=== PATIENT | male | born 1975 | race Caucasian/White ===

== ENCOUNTER 2017-03-12 16:02 | Emergency (ER) | payer OTHER ==
[~2017-03-12] VITALS: Ht 177.8 cm; Wt 92.5 kg
[2017-03-12 16:05] VITALS: Ht 177.8 cm; Wt 92.5 kg
[2017-03-12] MEDS ORDERED: NO ROUTINE MEDS (16:25)
--- NOTE | 2017-03-12 16:31 | NUR ---
LAB AT BEDSIDE FOR BLOOD DRAW.
[2017-03-12 16:43] LABS: BASOPHILS % (AUTO) 0.2 % (0-2); EOSINOPHILS # (AUTO) 0.1 T/MM3 (0-0.5); EOSINOPHILS % (AUTO) 1.5 % (0-4); HCT - HEMATOCRIT 47.4 % (41-53); HGB - HEMOGLOBIN 16.2 GM/DL (13.5-17.5); LYMPHOCYTES # (AUTO) 1.8 T/MM3 (1-4.8); LYMPHOCYTES % (AUTO) 20.7 % (23-45); MEAN CORPUSCULAR HGB 28.6 UUG (26-34); MEAN CORPUSCULAR HGB CONC(MCHC 34.2 GM/DL (31-37); MEAN CORPUSCULAR VOLUME 83.6 UM3 (80-100); MEAN PLATELET VOLUME 9.6 UM3 (9.4-12.4); MONOCYTES # (AUTO) 0.6 T/MM3 (0-0.8); MONOCYTES % (AUTO) 6.5 % (0-9.0); NEUTROPHILS #(AUTO)-ABSOLUTE 6.1 T/MM3 (1.8-7.7); NEUTROPHILS % (AUTO) 71.1 % (33-66); RED BLOOD COUNT 5.67 M/MM3 (4.50-5.90); WBC - WHITE BLOOD COUNT 8.6 T/MM3 (4.5-11.0)
[2017-03-12 16:50] LABS: ALBUMIN 4.5 G/DL (3.5-5.0); ALBUMIN/GLOBULIN RATIO 1.5 RATIO (1.1-2.2); ALKALINE PHOSPHATASE 68 U/L (38-126); ALT (SGPT) 47 U/L (21-72); ANION GAP 13 MEQ/L (5-15); AST (SGOT) 26 U/L (17-59); BUN/CREATININE RATIO 13 RATIO (6-26); CALCIUM 9.9 MG/DL (8.4-10.2); CHLORIDE 105 MEQ/L (98-107); CO2 - CARBON DIOXIDE 29 MEQ/L (22-30); CREATININE 1.2 MG/DL (0.8-1.5); GLOMERULAR FILTRATION RATE 66; GLUCOSE 99 MG/DL (75-110); POTASSIUM 4.8 MEQ/L (3.6-5); SODIUM 147 MEQ/L (134-144); TOTAL PROTEIN 7.6 G/DL (6.3-8.2)
--- NOTE | 2017-03-12 17:10 | NUR ---
PROVIDER DR. DILLARD AT BEDSIDE TO SPEAK WITH PT.
--- NOTE | 2017-03-12 17:20 | ERPDOC ---
Departure Disposition Decision Date: Mar 12, 2017 Disposition Decision Time: 17:44 Disposition: 01 DISCHARGED HOME, SELF-CARE Impression Impression Impression: Primary Impression: Atypical chest pain Severity: Mild Condition: Improved Seen By: Physician only Referrals: YUMIKO GARCIA DO (Family) CAPRI TORRES MD 1 Day Patient Instructions: Chest Pain (ED) Problems/Meds/Labs Reviewed?: Yes Medications reviewed and manag: Yes Follow up care ordered?: Yes Mental Status: Alert, Oriented HPI - General Medical General Chief Complaint: Chest Pain Stated Complaint: CHEST PAIN Time Seen by Provider: 16:12 Source: patient, family Exam Limitations: no limitations HPI - General Medical Initial Comments 41-year-old male presents to the emergency department with a chief complaint of chest pain. Patient states that he has felt mild tightness in his left chest for 2 weeks constantly. Patient describes his discomfort as 1/10. No radiation. He does not note anything that makes any better or any worse. Patient denies any other complaints or associated symptoms. Patient denies any personal history of coronary artery disease or familial history. Patient was at home when his symptoms began. Symptoms have been persistent in nature since onset without relenting for 2 weeks. Occurred At: home Onset: Constant Allergies: Coded Allergies: No Known Allergies (Unverified , 03/12/17) Past History Past Medical History Pt denies signifigant PMH Musculoskeletal: back pain, neck pain Surgical History Denies Surgeries General: back Family History Family History: Negative Social History Smoking Status: Never smoker Substance Use Type: does not use Alcohol Intake: none Review of Systems Constitutional Constitutional: DENIES: chills, fever Eyes General: DENIES: erythema, exudate Lids/Accessories: DENIES: erythema, swelling Vision: DENIES: acuity, blurring ENMT Ears: DENIES: drainage, erythema Hearing: DENIES: hearing loss Balance: DENIES: ataxia, falling to one side Sinuses: DENIES: congestion, pain Nose: DENIES: nosebleeds, pain Mouth/Throat: DENIES: painful swallowing, sore throat Teeth: DENIES: pain Jaw: DENIES: pain Cardiovascular Cardiac: chest pain, DENIES: dyspnea on exertion Rhythm/Rate: DENIES: irregular beat, palpitations Vascular: DENIES: pedal edema, unilateral swelling Pulmonary Respiratory: DENIES: cough, dyspnea, pleuritic chest pain, sputum GI Upper Abdomen: DENIES: nausea, pain, vomiting Lower Abdomen: DENIES: diarrhea, pain General: DENIES: dysuria, frequency Musculoskeletal General: DENIES: joint pain, tenderness Integumentary Skin: DENIES: itching, rash Neurological General: DENIES: headache, numbness, weakness Psychiatric Psychiatric: DENIES: emotional instability, suicidal ideation/attempt Endocrine Endocrine: DENIES: polydipsia, polyphagia Hematologic/Lymphatic Hematologic/Lymphatic: DENIES: frequent nosebleeds, lymphadenopathy Allergic/Immunological Allergic/Immunoligical: DENIES: allergic reactions, hives Physical Exam General General Nourishment: well nourished, well developed, appears stated age, no acute distress, adult General Body Habitus: well groomed Vitals and Pain First Documented Vital Signs Date Time Temp Pulse Resp B/P Pulse Ox O2 Delivery O2 Flow Rate FiO2 03/12/17 16:05 97.6 54 16 143/85 98 Room Air Weight: Kilograms: 92.500 Height (feet): 5 Height (inches): 10.00 Triage Pain Scale: RN VS reviewed by Provider: Yes Normal Exams: Head: Normocephalic w/o trauma Eyes: Pupils are PERRLA w/ EOMI, No scleral icterus, irritation, or foreign bodies noted ENMT: No facial trauma, nasal exudates, pharyngeal erythema, or exudates are noted Dental: No fractured, loose, or missing teeth noted Neck: Full range of motion, without adenopathy, JVD, bruits or thyromegaly Chest/Resp: Clear all mancilla, with good airflow, and symmetry bilaterally CV: Regular rate and rhythm, without murmur or gallop, Pulses 2+ all extremities, capillary refill, <2 seconds all ext., no pedal edema noted Abdomen: Bowel sounds positive, soft, non-tender, non-distended, no hepatosplenomegaly, masses or bruits noted Lymphatic: No lymphadenopathy, or lymphedema noted Musculoskeletal: No tenderness, or deformity noted, good range of motion, all extremities Integumentary: No rashes, hives, or bruising noted, hair and nails, without abnormality Neurologic: Patient is alert, and oriented, cranial nerves, motor/sensory/ cerebellar, exams w/o gross deficits, to observation Psychiatric: Patient exhibits, appropriate attention, emotion and affect Differential Diagnoses Considering: Acute MA, Pneumonia, Pulmonary Embolus, Other (anxiety) Progress Results/Orders Orders Procedure Category Date Status Time Cbc W/Auto LAB 03/12/17 Complete Diff-Reflex Manual Cmp - Comprehensive LAB 03/12/17 Complete Metabolic Troponin I W LAB 03/12/17 Complete Hemolysis Index EKG EKG 03/12/17 Logged EKG EKG 03/12/17 Logged Iv Lock (Ed Only) EDM 03/12/17 Transmitted 17:12 D-Dimer LAB 03/12/17 Complete 17:12 Chest 1 View RAD 03/12/17 Taken 17:12 Lab Results Laboratory Tests Test 03/12/17 16:33 White Blood Count 8.6T/MM3 Red Blood Count 5.67M/MM3 Hemoglobin 16.2GM/DL Hematocrit 47.4% Mean Corpuscular Volume 83.6UM3 Mean Corpuscular Hemoglobin 28.6UUG Mean Corpuscular Hemoglobin Concent 34.2GM/DL RDW Standard Deviation 36.5FL Platelet Count 223T/MM3 Mean Platelet Volume 9.6UM3 Immature Granulocyte % (Auto) 0.0% Neutrophils (%) (Auto) 71.1% Lymphocytes (%) (Auto) 20.7% Monocytes (%) (Auto) 6.5% Eosinophils (%) (Auto) 1.5% Basophils (%) (Auto) 0.2% Absolute Immature Granulocyte (auto 0.00T/MM3 Absolute Neutrophils (auto) 6.1T/MM3 Absolute Lymphocytes (auto) 1.8T/MM3 Absolute Monocytes (auto) 0.6T/MM3 Absolute Eosinophils (auto) 0.1T/MM3 Absolute Basophils (auto) 0.0T/MM3 D-Dimer < 150NG/ML Turbidity < 20 Sodium Level 147MEQ/L Potassium Level 4.8MEQ/L Chloride Level 105MEQ/L Carbon Dioxide Level 29MEQ/L Anion Gap 13MEQ/L Blood Urea Nitrogen 16.0MG/DL Creatinine 1.2MG/DL Glomerular Filtration Rate Calc 66 BUN/Creatinine Ratio 13RATIO Glucose Level 99MG/DL Calculated Osmolality 283MOSM/KG Calcium Level 9.9MG/DL Total Bilirubin 0.80MG/DL Icterus Index < 2 Aspartate Amino Transf (AST/SGOT) 26U/L Alanine Aminotransferase (ALT/SGPT) 47U/L Alkaline Phosphatase 68U/L Troponin I < 0.012ng/ml Total Protein 7.6G/DL Albumin 4.5G/DL Globulin 3.1G/DL Albumin/Globulin Ratio 1.5RATIO Chemistry Specimen Hemolysis < 15 Progress Progress Labs / imaging were discussed in detail with the patient and family and questions are answered. Patient refuses offered analgesic pain medication in the emergency department. Patient has had chest pain for 2 weeks consistently without resolution. If this were a cardiac process we should expect to see an abnormal EKG or elevated troponin which we do not. Patient has an unremarkable chest x-ray. Patient has a negative d-dimer. Patient is offered admission to the hospital which he declines. After declining admission to the hospital, the patient is discussed with Dr. Bliss of cardiology who recommends outpatient follow -up with Dr. Torres tomorrow in the office. Patient is instructed to use Motrin 600 mg by mouth 3 times a day until directed otherwise by Cardiology. Patient verbalizes agreement and understanding. Patient is discharged home in accordance with his wishes. He is to follow up as instructed. Patient is to return to the emergency department if his condition worsens or changes in any manner. Patient is in agreement with the current plan of management. Patient has no history personally or familial of coronary artery disease. Patient has no known risk factors for coronary artery disease. Ekg x [address] Bliss who agrees that the EKGS are similar and do not meet STEMI Criteria. EKG EKG : Rate: <60 Rhythm: sinus Reading: normal QRS: normal Intervals: normal ST/T: other (early repolarization. No STEMI reviewed with Dr. Bliss of Cardiology.) Interpreted by: signing physician EKG Comments EKG #2 - sinus bradycardia. 49 bpm. No STEMI. Reviewed with Cardiology. Xray Xray : Xray: CXR Portable Interpretation: Normal, Interpreted by STEPHANIE Harris DO Mar 12, 2017 17:20
--- NOTE | 2017-03-12 17:24 | NUR ---
XRAY PORTABLE XRAY AT BEDSIDE.
--- NOTE | 2017-03-12 17:40 | NUR ---
STATUS PT RESTING COMFORTABLY IN CART. REPORTS NO CHANGE IN CHEST PAIN, CURRENTLY 11/29. DENIES NEEDS AT THIS TIME. CALL LIGHT WITHIN REACH, SPOUSE REMAINS AT BEDSIDE. VSS, WILL CONTINUE TO MONITOR.
[2017-03-12 17:57] VITALS: BP 132/84; PULSE 54; RESP 16; TEMP 97.6; O2SAT 96
--- NOTE | 2017-03-12 17:57 | NUR ---
DISCHARGE WRITTEN INSTRUCTIONS REVIEWED WITH PT, INSTRUCTED TO RETURN TO ER WITH WORSENING SYMPTOMS OTHERWISE F/U WITH DR. TORRES AND ESTABLISHING PCP. PT VERBALIZES UNDERSTANDING OF DI, DENIES QUESTIONS. PT AMBULATES OUT OF ER WITH STEADY GAIT ACCOMP BY SPOUSE AT THIS TIME.
--- NOTE | 2017-03-13 07:55 | DI ---
Indication: ITS.REASON: Left upper chest pain, long-standing PROCEDURE: CHEST 1 VIEW: Encounter: Initial Comparison: None FINDINGS: The lungs are clear. There is no abnormal airspace opacity, pleural effusion or pneumothorax identified. The heart size, pulmonary vasculature and mediastinum are within normal limits. No significant skeletal abnormality is seen. IMPRESSION: No acute cardiopulmonary abnormality. .
== END 2017-03-12 17:57 | disposition home or self-care (01) ==
LOC: EDSEX 16:02 → ED 16:02
DX: R07.89 Other chest pain (principal)
CPT/HCPCS: 36415; 80053; 84484; 85025; 85379; 93005